=== PATIENT | female | born 1995 | race Two or more races ===

== ENCOUNTER 2025-06-19 08:30 | Outpatient (AMB) | payer MEDICAID, SELFPAY ==
[2025-06-19 09:07] VITALS: BP 118/79; PULSE 71; RESP 16; TEMP 36.3; O2SAT 96; BMI 35.8
--- NOTE | 2025-06-19 09:07 | AMB.OBINITIA ---
Vital Signs 06/19/25 09:07 Height 1.52 m Height Method Stated Weight 83.121 kg Weight Measurement Method Standing Scale BMI 35.8 BP 118/79 Blood Pressure Source Automatic Cuff Blood Pressure Location Left Upper Arm Position Sitting Respiration 16 Pulse 71 Pulse Source Monitor Temp 97.3 F Temp Source Oral Pulse Oximetry (%) 96 Oxygen Delivery Method Room Air Allergies/Home Meds Allergies & Medications Allergies No Known Allergies Allergy (Verified 06/19/25 09:08) Intake Visit Data Collection New Patient or Established: New Patient not seen in past 3 years at [facility] (considered New) Reason for Visit:: INITIAL CARE Seen by Clinical Staff ONLY (RN/MA): No Fur Mixer Required: No Do You Feel Safe at Home: Yes Authorities Contacted: N/A PCP or OBGYN visit in last 3 months: Yes Hx Now: Yes Are you currently on any form of Control: No Last menstrual period: 03/28/25 Pain Present Currently: No Pain Scale Used: Roland-Rosen/Numerical Pain scale:: 0 Smoking Status Smoking Status: Never smoker Questionnaires Covid-19 Vaccine Questionnaire Has patient been vacinated for Covid-19 Have you been vacinated for Covid-19: Yes PHQ-9 PHQ-2 Over the last 2 weeks, how often have you been bothered by any of the following problems? 1. Little interest or pleasure in doing things: not at all 2. Feeling down, depressed, or hopeless: not at all Total score: 0 PHQ-9 3. Trouble falling or staying asleep, or sleeping too much: Not at all 4. Feeling tired or having little energy: Not at all 5. Poor appetite or overeating: Not at all 6. Feeling bad about yourself - or that you are a failure or have let yourself or your family down: Not at all 7. Trouble concentrating on things, such as reading the newspaper or watching television: Not at all 8. Moving or speaking so slowly that other people could have noticed? - Or the opposite - being so fidgety or restless that you have been moving around a lot more than usual: not at all 9. Thoughts that you would be better off or of hurting yourself in some way: Not at all Total score: 0 Source: Developed by Drs. Oracio Nails, Latha Tarun Evans and colleagues, with an educational zaki from [employer]. Depression screen completed yes Social History Living Situation History Marital Status: Lives With: Family Housing: House Tobacco History Smoking Status: Never smoker Second Hand Smoke Exposure: No Alcohol History Alcohol Intake: Never Domestic Abuse History Do You Feel Safe at Home: Yes History of Present Illness HPI Narrative Kera Jimenez presents for care with a confirmed . Her last menstrual period was on March 28, and she had a positive home test on May 31. She reports experiencing spotting, which prompted an ER visit last Thursday. During the ER visit, she was diagnosed with a subchorionic hematoma and a urinary tract infection (UTI), for which she was prescribed cephalexin for 10 days. The patient is currently taking vitamins as recommended. She denies experiencing nausea or vomiting. She has a history of a previous and pre-eclampsia in her last . The patient is compliant with her antibiotic treatment for the UTI. She is a patient with an obstetric history of G2 T1 L1. Her last menstrual period was on March 28 and she is currently 7 weeks and 6 days with an estimated due date of February 07, 2026. The patient has a history of previous delivery and pre-eclampsia in her previous . ROS: Positive for nausea, vomiting, and spotting. Negative for fever, chills, fatigue, muscle aches, appetite or weight change, and cramping. OPEN CLAIMS REPRESENTATIVE: Past Medical History Past Medical History: No Hx Neurological Disorders, Yes Hx Hypothyroidism, No Hx Hyperthyroidism, No Hx Cardiac Disorders, No Hx Cancer, No Hx Blood Disorders, No Hx Gastrointestinal Disorders, No Hx Renal Disease, No Hx Diabetes Mellitus Type 1 and No Hx Diabetes Mellitus Type 2 OB Initial Visit OB Flowsheet OB Flowsheet Initial Weight: Not Recorded Date <del>?</del> EGA Weight BP Alb Glu CTX Pres Fundal ht FHR Mov Dilation Station Effacement Hx Notes Visit Note 06/19/25 <del>?</del> 7w 6d 83.121 kg 118/79 - Reports recent spotting - Evaluated at ER last Thursday - Diagnosed with subchorionic hematoma - Denies nausea, vomiting, or cramping - Recent medical history: - Diagnosed with UTI at recent ER visit - Currently taking cephalexin (antibiotic) for 10 days - Obstetric history: - Previous - History of pre-eclampsia in previous - Complete routine labs today - Perform genetic testing (NIPT) on or after June 27 when patient is 9 weeks gestation - Discontinue cephalexin if more than 5 days completed; send new urine culture - Start aspirin at 15 weeks gestation for pre-eclampsia prevention - Follow up in 4 weeks - Schedule nuchal translucency ultrasound at 12 weeks - Schedule anatomy ultrasound at 20 weeks - Patient to have repeat if delivering in [place]; option to transfer to [facility] if desiring trial of labor Menstrual History Menstrual reliability: definite Flow: normal Menstrual regularity: irregular Monthly: Yes Age at menarche: 9 On control pills at conception: No Associated symptoms (LMP): Reports nausea, fatigue, breast tenderness and bloating OB History : 3 Para: 1 Hx Total # of Abortions (Spontaneous & Elective): 1 # of Living Children: 1 Delivery History 1st : Child's name: LAYLA date: 07/08/22 sex: male Gestational age at delivery (weeks): 40 Delivery type: Delivery complications: PRE CLAMPSIA History of depression before or after : No Infection History & Risk Evaluation History of STDs: none Genetic Screening & History Genetic Screening/Teratology Counseling - Includes patient, baby's father, or anyone in either family with: 1. Patient's age 35 years or older as of estimated date of delivery: No 2. Thalassemia (Kuwaiti, Chinese, Mediterranean, or Background); MCV less than 80: No 3. Neural Tube Defect (Meningomyelocele, Spina Bifida, or Anencephaly): No 4. Congenital Heart Defect: No 5. Down Syndrome: No 6. Jackson-Sachs (Ashkenazi Sabianist, Cajun, Frisian [place]): No 7. Toni Disease (Ashkenazi Sabianist): No 8. Familial Dysautonomia (Ashkenazi Sabianist): No 9. Sickle Cell Disease or Trait (): No 10. Hemophilia or other blood disorders: No 11. Muscular Dystrophy: No 12. Cystic Fibrosis: No 13. Hamlin's Chorea: No 14. Mental Retardation/Autism: No 15. Other inherited genetic or chromosomal disorder: No 16. Maternal Metabolic Disorder (EG,TYPE 1 Diabetes, PKU): No 17. Patient or baby's father had a child with defects not listed above: No 18. Recurrent loss or a stillbirth: No 19. Medications (including supplements, vitamins, herbs or otc drugs)/illicit/recreational drugs/alcohol since last menstrual period: No 20. Any other: No Infection History 1. Live with someone with TB or exposed to TB: No 2. Rash or viral illness since last menstrual period: No 3. Hepatitis B,C: No Other (see comments) Source: [employer] Review of Systems Constitutional Constitutional: Reports fatigue Gastrointestinal Gastrointestinal: Reports bloating and Reports nausea Endocrine Endocrine: Reports fatigue Office Procedures OB Clinic LOC & Office Proc's Nursing/Assessment Patient Status: Initial/New Patient OB Clinic Nursing Assessment: Medication Reconciliation, Update PMH in EMR and Vital Signs OB Clinic Coordination of Care: Complex Care and Chronic Disease 1-5, Consent,records obtained, informed consent, Education Simp Pt/Fam, Lab and Imaging orders, Results/Orders obtained and Staff clarify orders Special Needs: Heart tones New Patient Charge New Patient Point Assignment: [id number] New Patient Point Charge: IMMIGRATION SERVICES OFFICER Level 4 ([id number]) Assessment & Plan Diagnosis / Problem List (1) Maternal care for low transverse scar from previous delivery: Status: Acute (2) Supervision of high risk , unspecified, first trimester: Status: Acute Plan Intrauterine : - 7 weeks 6 days gestation with viable heart rate of 167 bpm. - Resolving subchorionic hemorrhage with recent spotting. - Last menstrual period March 28, positive home test May 31. Plan: - Routine labs to be drawn today. - Genetic testing (NIPT) to be performed after 9 weeks gestation (on or after June 27). - Continue vitamins. - Follow-up appointment in 4 weeks. - Nuchal translucency ultrasound at 12 weeks (patient to receive call from [facility]). - Anatomy ultrasound scheduled for 20 weeks gestation. History of : - Previous delivery with local hospital capabilities requiring repeat if delivering in [place]. Plan: - Planned repeat if delivering in [place]. - Offered option of trial of labor after (TOLAC) with transfer to [place] or [place] if patient desires. History of pre-eclampsia: - Previous complicated by pre-eclampsia, placing patient at increased risk for recurrence. Plan: - Initiate aspirin at 15 weeks gestation for pre-eclampsia prevention. - Monitor kidney function and other relevant parameters throughout . Urinary tract infection: - Recent UTI diagnosis in ER, currently on day 5 of 10-day course of cephalexin. Plan: - Discontinue cephalexin if more than 5 days completed. - Obtain new urine culture to ensure infection clearance.
== END 2025-06-19 09:38 | disposition home or self-care (01) ==
LOC: HODSOBC 08:30
PROVIDERS: Supervising Provider Obstetrics & Gynecology; Visit Provider Obstetrics & Gynecology
DX: O09.291 Supervision of pregnancy with other poor reproductive or obstetric history, first trimester (principal); O34.211 Maternal care for low transverse scar from previous cesarean delivery; O23.41 Unspecified infection of urinary tract in pregnancy, first trimester; Z3A.01 Less than 8 weeks gestation of pregnancy; Z87.59 Personal history of other complications of pregnancy, childbirth and the puerperium
CPT/HCPCS: 99204; G0463

== ENCOUNTER 2025-07-24 08:33 | Outpatient (AMB) | payer MEDICAID, SELFPAY ==
[2025-07-24 08:46] VITALS: BP 118/76; PULSE 79; RESP 16; TEMP 36.3; O2SAT 96; BMI 35.2
--- NOTE | 2025-07-24 08:46 | OBCLNT_ITS ---
Vital Signs 07/24/25 08:46 Height 1.52 m Height Method Stated Weight 81.363 kg Weight Measurement Method Standing Scale BMI 35.2 BP 118/76 Blood Pressure Source Automatic Cuff Blood Pressure Location Left Upper Arm Position Sitting Respiration 16 Pulse 79 Pulse Source Monitor Temp 97.4 F Temp Source Oral Pulse Oximetry (%) 96 Oxygen Delivery Method Room Air Allergies/Home Meds Allergies & Medications Allergies No Known Allergies Allergy (Verified 07/24/25 08:47) Medication Reconciliation No Known Home Medications 07/24/25 [History Confirmed 07/24/25] Intake Visit Data Collection New Patient or Established: Established Patient (seen at [facility] within 3 years) Reason for Visit:: CARE Seen by Clinical Staff ONLY (RN/MA): No Branch Office Administrator Required: No Do You Feel Safe at Home: Yes Authorities Contacted: N/A PCP or OBGYN visit in last 3 months: Yes Hx Now: Yes Are you currently on any form of Control: No Pain Present Currently: No Pain Scale Used: Roland-Rosen/Numerical Pain scale:: 0 Smoking Status Smoking Status: Never smoker Questionnaires Covid-19 Vaccine Questionnaire Has patient been vacinated for Covid-19 Have you been vacinated for Covid-19: Yes PHQ-9 PHQ-2 Over the last 2 weeks, how often have you been bothered by any of the following problems? 1. Little interest or pleasure in doing things: not at all 2. Feeling down, depressed, or hopeless: not at all Total score: 0 PHQ-9 3. Trouble falling or staying asleep, or sleeping too much: Not at all 4. Feeling tired or having little energy: Not at all 5. Poor appetite or overeating: Not at all 6. Feeling bad about yourself - or that you are a failure or have let yourself or your family down: Not at all 7. Trouble concentrating on things, such as reading the newspaper or watching television: Not at all 8. Moving or speaking so slowly that other people could have noticed? - Or the opposite - being so fidgety or restless that you have been moving around a lot more than usual: not at all 9. Thoughts that you would be better off or of hurting yourself in some way: Not at all Total score: 0 Source: Developed by Latha PiañW. Raffy, Tarun Bailey and colleagues, with an educational zaki from [employer] Depression screen completed yes Social History Living Situation History Lives With: Family Housing: House Tobacco History Smoking Status: Never smoker Second Hand Smoke Exposure: No Alcohol History Alcohol Intake: Never Domestic Abuse History Do You Feel Safe at Home: Yes BUSINESS APPLICATIONS ANALYST: Past Medical History Past Medical History: No Hx Neurological Disorders, Yes Hx Hypothyroidism, No Hx Hyperthyroidism, No Hx Cardiac Disorders, No Hx Cancer, No Hx Blood Disorders, No Hx Gastrointestinal Disorders, No Hx Renal Disease, No Hx Diabetes Mellitus Type 1 and No Hx Diabetes Mellitus Type 2 Care OB Visit Log OB Flowsheet Initial Weight: Not Recorded Date -?-?-?-?-?-?-?-?-?-?-?-?- EGA Weight BP Alb Glu CTX Pres Fundal ht FHR Mov Dilation Station Effacement Hx Notes Visit Note 06/19/25 -?-?-?-?-?-?-?-?-?-?-?-?- 7w 6d 83.121 kg 118/79 - Reports recent spotting - Evaluated at ER last Thursday - Diagnosed with subchorionic hemato ma - Denies nausea, vomiting, or cramping - Recent medical history: - Diagnosed with UTI at recent ER visi t - Currently taking cephalexin (antib iotic) for 10 days - Obstetric history: - Previous - History of pre-eclampsia in previous - Complete routine labs today - Perform genetic testing (NIPT) on or a fter June 27 when patient is 9 weeks gestation - Discontinue cephalexin if more than 5 days completed; send new urine culture - Start aspirin at 15 weeks gestation fo r pre-eclampsia prevention - Follow up in 4 weeks - Schedule nuchal translucency ultrasoun d at 12 weeks - Schedule anatomy ultrasound at 20 week s - Patient to have repeat if de livering in [place]; option to queen sfer to [place] or [place] if desiring trial of labor 07/24/25 -?-?-?-?-?-?-?-?-?-?-?-?- 12w 6d 81.363 kg 118/76 Denies MARSHALL, VC, and epigastric pain. - Patient reports no specific complaints or concerns at this visit. - She inquires about resuming acne medic ation she was taking prior to . - Medication name not specified in tra nscript. - Patient mentions low vitamin D levels. - Currently taking 5000 units of vitamin D daily. Plan - Follow up in 2 weeks to review ultraso und results - Discontinue minocycline for acne treat ment - Prescribe topical clindamycin (face wa sh and cream) for acne management - Continue vitamin D supplementation (50 00 units daily, taken in the morning) - Attend scheduled ultrasound appointmen t this afternoon CICI Calculator Estimated Delivery Date Method Current WG Current Estimate 01/30/26 Ultrasound #1 12w 6d Other Estimates 01/02/26 LMP (Certain) 16w 6d Office Procedures OBC Clinic LOC & Office Proc's Nursing/Assessment Patient Status: Established Patient OB Clinic Nursing Assessment: Medication Reconciliation, Update PMH in EMR and Vital Signs OB Clinic Coordination of Care: Complex Care and Chronic Disease 1-5, Consent,records obtained, informed consent, Education Simp Pt/Fam, Lab and Imaging orders, Results/Orders obtained and Staff clarify orders Special Needs: Heart tones Established Patient Charge Established Patient Point Assignment: 135 Established Patient Point Charge: EP Level 4 (120-155) Assessment & Plan Diagnosis / Problem List (1) Supervision of high risk , unspecified, first trimester: Status: Acute (2) Maternal care for low transverse scar from previous delivery: Status: Acute Plan Problem List - , first trimester - Vitamin D deficiency - Acne Assessment 3 para 0 at 12 weeks and 6 days gestation presenting for routine visit. panel, including hepatitis testing and antibodies, all within normal limits. Urine culture negative. Genetic testing completed, revealing sex as female. Patient reports history of acne treated with minocycline prior to , which is now contraindicated. Low vitamin D levels noted. Patient scheduled for ultrasound on the same day as this visit. Plan - Follow up in 2 weeks to review ultrasound results - Discontinue minocycline for acne treatment - Prescribe topical clindamycin (face wash and cream) for acne management - Continue vitamin D supplementation (5000 units daily, taken in the morning) - Attend scheduled ultrasound appointment this afternoon
== END 2025-07-24 09:14 | disposition home or self-care (01) ==
LOC: HODSOBC 08:33
PROVIDERS: Supervising Provider Obstetrics & Gynecology; Visit Provider Obstetrics & Gynecology
DX: O09.291 Supervision of pregnancy with other poor reproductive or obstetric history, first trimester (principal); O34.211 Maternal care for low transverse scar from previous cesarean delivery; O99.281 Endocrine, nutritional and metabolic diseases complicating pregnancy, first trimester; E55.9 Vitamin D deficiency, unspecified; L70.9 Acne, unspecified; O99.711 Diseases of the skin and subcutaneous tissue complicating pregnancy, first trimester; Z3A.12 12 weeks gestation of pregnancy; Z87.59 Personal history of other complications of pregnancy, childbirth and the puerperium
CPT/HCPCS: 99214; G0463

== ENCOUNTER 2025-08-07 08:35 | Outpatient (AMB) | payer MEDICAID, SELFPAY ==
[2025-08-07 08:46] VITALS: BP 117/74; PULSE 82; RESP 16; TEMP 36.2; O2SAT 99; BMI 35.3
--- NOTE | 2025-08-07 08:46 | OBCLNT_ITS ---
Vital Signs 08/07/25 08:46 Height 1.52 m Height Method Stated Weight 81.647 kg Weight Measurement Method Standing Scale BMI 35.3 BP 117/74 Blood Pressure Source Automatic Cuff Blood Pressure Location Left Upper Arm Position Sitting Respiration 16 Pulse 82 Pulse Source Monitor Temp 97.2 F Temp Source Oral Pulse Oximetry (%) 99 Oxygen Delivery Method Room Air Allergies/Home Meds Allergies & Medications Allergies No Known Allergies Allergy (Verified 08/07/25 08:48) Medication Reconciliation aspirin 81 mg tablet 81 mg PO QDAY 90 days #90 tabs 08/31/25 [Rx] Intake Visit Data Collection New Patient or Established: Established Patient (seen at [facility] within 3 years) Reason for Visit:: OBC Seen by Clinical Staff ONLY (RN/MA): No Director Enterprise Systems Required: No Do You Feel Safe at Home: Yes Authorities Contacted: N/A PCP or OBGYN visit in last 3 months: Yes Date of Last PCP or OBGYN visit: 07/24/25 Hx Now: Yes Are you currently on any form of Control: No Pain Present Currently: No Pain Scale Used: Roland-Rosen/Numerical Pain scale:: 0 Smoking Status Smoking Status: Never smoker Questionnaires Covid-19 Vaccine Questionnaire Has patient been vacinated for Covid-19 Have you been vacinated for Covid-19: Yes PHQ-9 PHQ-2 Over the last 2 weeks, how often have you been bothered by any of the following problems? 1. Little interest or pleasure in doing things: not at all 2. Feeling down, depressed, or hopeless: not at all Total score: 0 PHQ-9 3. Trouble falling or staying asleep, or sleeping too much: Not at all 4. Feeling tired or having little energy: Not at all 5. Poor appetite or overeating: Not at all 6. Feeling bad about yourself - or that you are a failure or have let yourself or your family down: Not at all 7. Trouble concentrating on things, such as reading the newspaper or watching television: Not at all 8. Moving or speaking so slowly that other people could have noticed? - Or the opposite - being so fidgety or restless that you have been moving around a lot more than usual: not at all 9. Thoughts that you would be better off or of hurting yourself in some way: Not at all Total score: 0 If you checked off any problems, how difficult have these problems made it for you to do your work, take care of things at home, or get along with other people?: not difficult at all Source: Developed by Drs. Oracio Nails, Latha Akbar, Tarun Bailey and colleagues, with an educational zaki from [employer]. Depression screen completed yes Social History Living Situation History Marital Status: Single Lives With: Family Housing: House Tobacco History Smoking Status: Never smoker Second Hand Smoke Exposure: No Alcohol History Alcohol Intake: Never Domestic Abuse History Do You Feel Safe at Home: Yes SENIOR MECHANICAL PROJECT ENGINEER: Past Medical History Past Medical History: No Hx Neurological Disorders, Yes Hx Hypothyroidism, No Hx Hyperthyroidism, No Hx Cardiac Disorders, No Hx Cancer, No Hx Blood Disorders, No Hx Gastrointestinal Disorders, No Hx Renal Disease, No Hx Diabetes Mellitus Type 1 and No Hx Diabetes Mellitus Type 2 Care OB Visit Log OB Flowsheet Initial Weight: Not Recorded Date -?-?-?-?-?-?-?-?-?-?-?-?- EGA Weight BP Alb Glu CTX Pres Fundal ht FHR Mov Dilation Station Effacement Hx Notes Visit Note 06/19/25 -?-?-?-?-?-?-?-?-?-?-?-?- 7w 6d 83.121 kg 118/79 - Reports recent spotting - Evaluated at ER last Thursday - Diagnosed with subchorionic hemato ma - Denies nausea, vomiting, or cramping - Recent medical history: - Diagnosed with UTI at recent ER visi t - Currently taking cephalexin (antib iotic) for 10 days - Obstetric history: - Previous - History of pre-eclampsia in previous - Complete routine labs today - Perform genetic testing (NIPT) on or a fter June 27 when patient is 9 weeks gestation - Discontinue cephalexin if more than 5 days completed; send new urine culture - Start aspirin at 15 weeks gestation fo r pre-eclampsia prevention - Follow up in 4 weeks - Schedule nuchal translucency ultrasoun d at 12 weeks - Schedule anatomy ultrasound at 20 week s - Patient to have repeat if de livering in [place]; option to transfer to [place] or [place] if desiring trial of labor 07/24/25 -?-?-?-?-?-?-?-?-?--?-?-?- 12w 6d 81.363 kg 118/76 Denies MARSHALL, VC, and epigastric pain. - Patient reports no specific complaints or concerns at this visit. - She inquires about resuming acne medic ation she was taking prior to . - Medication name not specified in tra nscript. - Patient mentions low vitamin D levels. - Currently taking 5000 units of vitamin D daily. Plan - Follow up in 2 weeks to review ultraso und results - Discontinue minocycline for acne treat ment - Prescribe topical clindamycin (face wa sh and cream) for acne management - Continue vitamin D supplementation (50 00 units daily, taken in the morning) - Attend scheduled ultrasound appointmen t this afternoon 08/07/25 -?-?-?-?-?-?-?-?-?-?-?-?- 14w 6d 81.647 kg 117/74 - Patient had nuchal translucency screening with [facility]- [facility]. - She has a history of preeclampsia and has been initiated on aspirin therapy. - Patient has a BMI of 35. - She has a scheduled appointment for anatomy ultrasound. - Initiate aspirin therapy - Schedule anatomy ultrasound - Obtain insurance authorization for ref erral CICI Calculator Estimated Delivery Date Method Current WG Current Estimate 01/30/26 Ultrasound #1 19w 4d Other Estimates 01/02/26 LMP (Certain) 23w 4d Office Procedures OBC Clinic LOC & Office Proc's Nursing/Assessment Patient Status: Established Patient OB Clinic Nursing Assessment: Medication Reconciliation, Update PMH in EMR and Vital Signs OB Clinic Coordination of Care: Consent,records obtained, informed consent, Education Simp Pt/Fam, Lab and Imaging orders, Results/Orders obtained and Staff clarify orders Special Needs: Heart tones Established Patient Charge Established Patient Point Assignment: 110 Established Patient Point Charge: EP Level 3 (80-115) Assessment & Plan Diagnosis / Problem List (1) Maternal care for low transverse scar from previous delivery: Status: Acute (2) Supervision of high risk , unspecified, first trimester: Status: Acute Plan Problem List - , 14 weeks 6 days gestation - Obesity (BMI 35) - History of preeclampsia Plan - Initiate aspirin therapy - Schedule anatomy ultrasound - Obtain insurance authorization for referral 1. Progress Reviewed gestational age, growth, and heart rate. Planned frequent visits (every 2 weeks until 36 weeks, then weekly). 2. Instructed patient to monitor movements and report decreases immediately. 3. Testing Counseled on routine third-trimester labs per guidelines. Discussed potential need for ultrasound or monitoring based on risk factors. 4. Preeclampsia Precaution Educated on preeclampsia signs: severe headache, vision changes, right upper quadrant pain, sudden swelling. Advised urgent reporting of symptoms and discussed blood pressure monitoring if high risk. 5. Labor Precautions Reviewed labor signs: regular contractions, pelvic pressure, back pain, bleeding, or fluid leakage. Instructed to seek immediate care for these symptoms. 6. Lifestyle and Delivery Preparation Reinforced vitamins, nutrition, and safe activity. Discussed plan, pain management, and . Advised on labor preparation (e.g., hospital bag) and expectations. 7. Psychosocial Support Assessed emotional well-being and offered resources for mental health or parenting support.
== END 2025-08-07 09:20 | disposition home or self-care (01) ==
LOC: HODSOBC 08:35
PROVIDERS: Supervising Provider Obstetrics & Gynecology; Visit Provider Obstetrics & Gynecology
DX: O09.292 Supervision of pregnancy with other poor reproductive or obstetric history, second trimester (principal); O34.211 Maternal care for low transverse scar from previous cesarean delivery; O09.892 Supervision of other high risk pregnancies, second trimester; O99.212 Obesity complicating pregnancy, second trimester; Z3A.14 14 weeks gestation of pregnancy; Z87.59 Personal history of other complications of pregnancy, childbirth and the puerperium
CPT/HCPCS: 99213; G0463

== ENCOUNTER 2025-09-19 10:29 | Outpatient (AMB) | payer MEDICAID, SELFPAY ==
--- NOTE | 2025-09-19 10:33 | AMB.OBPNC ---
Vital Signs 09/19/25 10:48 Height 1.52 m Height Method Stated Weight 83.461 kg Weight Measurement Method Standing Scale BMI 36.1 BP 116/78 Blood Pressure Source Automatic Cuff Blood Pressure Location Left Upper Arm Position Sitting Respiration 16 Pulse 82 Pulse Source Monitor Temp 97.4 F Temp Source Oral Pulse Oximetry (%) 96 Oxygen Delivery Method Room Air Allergies/Home Meds Allergies & Medications Allergies No Known Allergies Allergy (Verified 09/19/25 10:49) Medication Reconciliation aspirin 81 mg tablet 81 mg PO QDAY 90 days #90 tabs 09/19/25 [Rx] vits no.126-ferrous fum 28 mg iron-folic acid 800 mcg tablet (Classic ) 1 tab PO QDAY 90 days #90 tabs 09/19/25 [Rx] Immunizations Immunizations Flu Vaccine in the Last 12 Months: No Flu Vaccine Exclusion Criteria: Refused by Patient Care OB Visit Log OB Flowsheet Initial Weight: Not Recorded Date <del>?</del> EGA Weight BP Alb Glu CTX Pres Fundal ht FHR Mov Dilation Station Effacement Hx Notes Visit Note 06/19/25 <del>?</del> 7w 6d 83.121 kg 118/79 - Reports recent spotting - Evaluated at ER last Thursday - Diagnosed with subchorionic hematoma - Denies nausea, vomiting, or cramping - Recent medical history: - Diagnosed with UTI at recent ER visit - Currently taking cephalexin (antibiotic) for 10 days - Obstetric history: - Previous - History of pre-eclampsia in previous - Complete routine labs today - Perform genetic testing (NIPT) on or after June 27 when patient is 9 weeks gestation - Discontinue cephalexin if more than 5 days completed; send new urine culture - Start aspirin at 15 weeks gestation for pre-eclampsia prevention - Follow up in 4 weeks - Schedule nuchal translucency ultrasound at 12 weeks - Schedule anatomy ultrasound at 20 weeks - Patient to have repeat if delivering in [place]; option to transfer to [place] or [place] if desiring trial of labor 07/24/25 <del>?</del> 12w 6d 81.363 kg 118/76 Denies MARSHALL, VC, and epigastric pain. - Patient reports no specific complaints or concerns at this visit. - She inquires about resuming acne medication she was taking prior to . - Medication name not specified in transcript. - Patient mentions low vitamin D levels. - Currently taking 5000 units of vitamin D daily. Plan - Follow up in 2 weeks to review ultrasound results - Discontinue minocycline for acne treatment - Prescribe topical clindamycin (face wash and cream) for acne management - Continue vitamin D supplementation (5000 units daily, taken in the morning) - Attend scheduled ultrasound appointment this afternoon 08/07/25 <del>?</del> 14w 6d 81.647 kg 117/74 - Patient had nuchal translucency screening with [facility]. - She has a history of preeclampsia and has been initiated on aspirin therapy. - Patient has a BMI of 35. - She has a scheduled appointment for anatomy ultrasound. - Initiate aspirin therapy - Schedule anatomy ultrasound - Obtain insurance authorization for referral 09/19/25 <del>?</del> 21w 0d 83.461 kg 116/78 unstable 21 145 active - Patient reports the baby is active. - She has not yet obtained the prescribed aspirin medication despite the prescription being sent. - Patient inquires about receiving the flu shot during . - Continue aspirin prescription (patient to steel pickler from pharmacy with printout provided) - Administer influenza vaccination today - Order 1-hour glucose tolerance test to be completed within next 4 weeks (recommend fasting) - Continue vitamins - Follow-up with [facility] (Dr. Lange) on October 06 - Return visit in 4 weeks after [facility] appointment CICI Calculator Estimated Delivery Date Method Current WG Current Estimate 01/30/26 Ultrasound #1 25w 2d Other Estimates 01/02/26 LMP (Certain) 29w 2d Notes Visit Date: 09/19/25 Last Updated by: Samir Frausto MD Laboratory, Imaging, and Diagnostic Test Results - AFP result: Negative - [facility] ultrasound (09/04/2025): - Single living fetus - Gestational age: 20 weeks 3 days (composite age) - Estimated weight: 9th percentile - ANDREEA: Within normal limits - Detailed evaluation: Limited due to position, evaluated structures normal - Placenta: Posterior right lateral, no previa - Cervix: 4.5 cm - heart rate: 163 bpm (normal) - Umbilical artery Dopplers: Within normal limits Office Procedures OBC Clinic LOC & Office Proc's Nursing/Assessment Patient Status: Established Patient OB Clinic Nursing Assessment: Medication Reconciliation, Update PMH in EMR and Vital Signs OB Clinic Coordination of Care: Complex Care and Chronic Disease 1-5, Consent,records obtained, informed consent, Education Simp Pt/Fam, 1 Ins Authorization, Lab and Imaging orders, Results/Orders obtained and Staff clarify orders Special Needs: Heart tones Established Patient Charge Established Patient Point Assignment: 150 Injection/Vaccine Admin SQ Im Injection: Yes Immunizations flu vac ts (6mos up)-PF 45 mcg(15mcg x3)/0.5 mL IM syringe Performing Provider: Samir Frausto MD Performing Location: [facility] Administered by: Rebeca Clement MA on 09/19/25 11:59 Dose Route Admin Location Dispensed Lot Number Expiration Date Package NDC NDC Manager Port 0.5 mL IM Left Deltoid 0.5 mL [id number] 04/24/26 [id number] Tymphany VIS Given Date VIS Provided VIS Publication Date 09/19/25 Single Vaccine 24 Eligibility Eligibility Date Funding Source Public [facility] [place] Assessment & Plan Diagnosis / Problem List (1) Maternal care for low transverse scar from previous delivery: Status: Acute (2) Maternal care for other known or suspected poor growth, third trimester, not applicable or unspecified: Status: Acute Plan Problem List - growth restriction - at 21 weeks gestation Assessment 21-week patient with growth restriction identified on MFM ultrasound showing estimated weight at 9th percentile and growth parameters not consistent with gestational age, though detailed evaluation was limited due to position and evaluated structures appeared normal. Patient has negative AFP result and normal heart rate of 163 bpm with active movement reported. Plan - Continue aspirin prescription (patient to steel pickler from pharmacy with printout provided) - Administer influenza vaccination today - Order 1-hour glucose tolerance test to be completed within next 4 weeks (recommend fasting) - Continue vitamins - Follow-up with [facility] (Dr. Lange) on October 06 - Return visit in 4 weeks after MFM appointment 1. Progress Reviewed gestational age at 21 weeks 0 days, growth restriction noted on MFM ultrasound with estimated weight at 9th percentile, and heart rate of 163 bpm which is normal. Planned follow-up visit in 4 weeks and continued MFM monitoring. 2. Instructed patient to monitor movements and report decreases immediately. 3. Testing Counseled on routine third-trimester labs per guidelines including one-hour glucose test to be completed within next 4 weeks. Discussed potential need for ultrasound or monitoring based on risk factors including growth restriction. 4. Preeclampsia Precaution Educated on preeclampsia signs: severe headache, vision changes, right upper quadrant pain, sudden swelling. Advised urgent reporting of symptoms and discussed blood pressure monitoring if high risk with aspirin prescription provided. 5. Labor Precautions Reviewed labor signs: regular contractions, pelvic pressure, back pain, bleeding, or fluid leakage. Instructed to seek immediate care for these symptoms. 6. Lifestyle and Delivery Preparation Reinforced vitamins, nutrition, and safe activity. Discussed plan, pain management, and . Advised on labor preparation (e.g., hospital bag) and expectations. 7. Psychosocial Support Assessed emotional well-being and offered resources for mental health or parenting support.
[2025-09-19 10:48] VITALS: BP 116/78; PULSE 82; RESP 16; TEMP 36.3; O2SAT 96; BMI 36.1
== END 2025-09-19 11:04 | disposition home or self-care (01) ==
LOC: HODSOBC 10:29
PROVIDERS: Supervising Provider Obstetrics & Gynecology; Visit Provider Obstetrics & Gynecology
DX: O09.292 Supervision of pregnancy with other poor reproductive or obstetric history, second trimester (principal); O34.211 Maternal care for low transverse scar from previous cesarean delivery; O09.892 Supervision of other high risk pregnancies, second trimester; O36.5920 Maternal care for other known or suspected poor fetal growth, second trimester, not applicable or unspecified; Z3A.21 21 weeks gestation of pregnancy; Z23 Encounter for immunization
CPT/HCPCS: 90471; 90686; 96372; 99213; G0463; J9060

== ENCOUNTER 2025-10-23 08:39 | Outpatient (AMB) | payer MEDICAID, SELFPAY ==
[2025-10-23 08:48] VITALS: BP 114/78; PULSE 77; RESP 18; TEMP 36.2; O2SAT 96; BMI 36.0
--- NOTE | 2025-10-23 08:48 | AMB.OBPNC ---
Vital Signs 10/23/25 08:48 Height 1.52 m Height Method Stated Weight 83.178 kg Weight Measurement Method Standing Scale BMI 36.0 BP 114/78 Blood Pressure Source Automatic Cuff Blood Pressure Location Right Upper Arm Position Sitting Respiration 18 Pulse 77 Pulse Source Monitor Temp 97.2 F Temp Source Temporal Artery Scan Pulse Oximetry (%) 96 Oxygen Delivery Method Room Air Allergies/Home Meds Allergies & Medications Allergies No Known Allergies Allergy (Verified 10/23/25 08:49) Medication Reconciliation aspirin 81 mg tablet 81 mg PO QDAY 90 days #90 tabs 09/19/25 [Rx Confirmed 10/23/25] vits no.126-ferrous fum 28 mg iron-folic acid 800 mcg tablet (Classic ) 1 tab PO QDAY 90 days #90 tabs 09/19/25 [Rx Confirmed 10/23/25] Immunizations Immunizations Flu Vaccine in the Last 12 Months: No Flu Vaccine Exclusion Criteria: No Exclusion Criteria Care OB Visit Log OB Flowsheet Initial Weight: Not Recorded Date <del>?</del> EGA Weight BP Alb Glu CTX Pres Fundal ht FHR Mov Dilation Station Effacement Hx Notes Visit Note 06/19/25 <del>?</del> 7w 6d 83.121 kg 118/79 - Reports recent spotting - Evaluated at ER last Thursday - Diagnosed with subchorionic hematoma - Denies nausea, vomiting, or cramping - Recent medical history: - Diagnosed with UTI at recent ER visit - Currently taking cephalexin (antibiotic) for 10 days - Obstetric history: - Previous - History of pre-eclampsia in previous - Complete routine labs today - Perform genetic testing (NIPT) on or after June 27 when patient is 9 weeks gestation - Discontinue cephalexin if more than 5 days completed; send new urine culture - Start aspirin at 15 weeks gestation for pre-eclampsia prevention - Follow up in 4 weeks - Schedule nuchal translucency ultrasound at 12 weeks - Schedule anatomy ultrasound at 20 weeks - Patient to have repeat if delivering in [place]; option to transfer to [place] or [place] if desiring trial of labor 07/24/25 <del>?</del> 12w 6d 81.363 kg 118/76 Denies MARSHALL, VC, and epigastric pain. - Patient reports no specific complaints or concerns at this visit. - She inquires about resuming acne medication she was taking prior to . - Medication name not specified in transcript. - Patient mentions low vitamin D levels. - Currently taking 5000 units of vitamin D daily. Plan - Follow up in 2 weeks to review ultrasound results - Discontinue minocycline for acne treatment - Prescribe topical clindamycin (face wash and cream) for acne management - Continue vitamin D supplementation (5000 units daily, taken in the morning) - Attend scheduled ultrasound appointment this afternoon 08/07/25 <del>?</del> 14w 6d 81.647 kg 117/74 - Patient had nuchal translucency screening with [facility]. - She has a history of preeclampsia and has been initiated on aspirin therapy. - Patient has a BMI of 35. - She has a scheduled appointment for anatomy ultrasound. - Initiate aspirin therapy - Schedule anatomy ultrasound - Obtain insurance authorization for referral 09/19/25 <del>?</del> 21w 0d 83.461 kg 116/78 unstable 21 145 active - Patient reports the baby is active. - She has not yet obtained the prescribed aspirin medication despite the prescription being sent. - Patient inquires about receiving the flu shot during . - Continue aspirin prescription (patient to fiber picker from pharmacy with printout provided) - Administer influenza vaccination today - Order 1-hour glucose tolerance test to be completed within next 4 weeks (recommend fasting) - Continue vitamins - Follow-up with [facility] (Dr. Lange) on October 06 - Return visit in 4 weeks after MFM appointment 10/23/25 <del>?</del> 25w 6d 83.178 kg 114/78 unknown 27 155 active - She reports the baby is moving and she is feeling movement. - She denies having diabetes following her glucose tolerance test. - Patient has been following up with a specialist regarding concerns about growth restriction (FGR). - She reports upcoming frequent monitoring appointments with the specialist, including weekly visits for Doppler studies and measurements every 3 weeks. - Her first baby weighed 9 pounds at . - She requests FMLA forms to be completed for time off for medical appointments. - Continue follow-up with M specialist every week for Doppler studies and every 3 weeks for growth measurements - Return to obstetrics clinic in 2 weeks - Complete FMLA forms for time off for appointments CICI Calculator Estimated Delivery Date Method Current WG Current Estimate 01/30/26 Ultrasound #1 25w 6d Other Estimates 01/02/26 LMP (Certain) 29w 6d Notes Visit Date: 10/23/25 Last Updated by: Samir Frausto MD - Ultrasound: - Gestational age: 26 weeks 3 days - Single fetus - presentation: Cephalic - Estimated weight: 7th percentile - Head circumference: Less than 1st percentile - Composite gestational age: 24 weeks 3 days - Abdominal circumference: 22nd percentile - anatomy: Normal - Placenta: Posterior-left lateral - Amniotic fluid: Normal - Doppler studies: Reassuring - Abnormal growth consistent with growth restriction (FGR) Visit Date: 09/19/25 Last Updated by: Samir Frausto MD Laboratory, Imaging, and Diagnostic Test Results - AFP result: Negative - [facility] ultrasound (09/04/2025): - Single living fetus - Gestational age: 20 weeks 3 days (composite age) - Estimated weight: 9th percentile - ANDREEA: Within normal limits - Detailed evaluation: Limited due to position, evaluated structures normal - Placenta: Posterior right lateral, no previa - Cervix: 4.5 cm - heart rate: 163 bpm (normal) - Umbilical artery Dopplers: Within normal limits Office Procedures OBC Clinic LOC & Office Proc's Nursing/Assessment Patient Status: Established Patient OB Clinic Nursing Assessment: Medication Reconciliation, Update PMH in EMR and Vital Signs OB Clinic Coordination of Care: Complex Care and Chronic Disease 1-5, Education Complex Pt/Fam, Consent,records obtained, informed consent, Lab and Imaging orders, Results/Orders obtained and Staff clarify orders Special Needs: Heart tones Established Patient Charge Established Patient Point Assignment: 140 Established Patient Point Charge: EP Level 4 (120-155) Assessment & Plan Diagnosis / Problem List (1) Maternal care for other known or suspected poor growth, third trimester, not applicable or unspecified: Status: Acute (2) Maternal care for low transverse scar from previous delivery: Status: Acute Plan Problem List - growth restriction Assessment 25-week 6-day patient with growth restriction (FGR) showing abnormal growth with head circumference measuring less than first percentile and estimated weight in the 7th percentile, though overall anatomy appears normal with reassuring Doppler studies and adequate amniotic fluid. One-hour glucose tolerance test result of 135 mg/dL is negative, ruling out gestational diabetes. Patient reports normal movement and has a history of previous full-term infant weighing 9 pounds at . Plan - Continue follow-up with MFM specialist every week for Doppler studies and every 3 weeks for growth measurements - Return to obstetrics clinic in 2 weeks - Complete FMLA forms for time off for appointments 1. Progress Reviewed gestational age at 25 weeks 6 days, growth restriction with estimated weight at 7th percentile and small head circumference less than 1st percentile, and heart rate of 139 bpm. Planned frequent visits every 2 weeks with MFM specialist for Doppler studies and growth measurements every 3 weeks. 2. Instructed patient to monitor movements and report decreases immediately. 3. Testing One-hour glucose tolerance test completed with result of 135 mg/dL (negative for gestational diabetes). Recent ultrasound at 26 weeks 3 days showing growth restriction with reassuring Dopplers and normal anatomy. 4. Preeclampsia Precaution Educated on preeclampsia signs: severe headache, vision changes, right upper quadrant pain, sudden swelling. Advised urgent reporting of symptoms and discussed blood pressure monitoring if high risk. 5. Labor Precautions Reviewed labor signs: regular contractions, pelvic pressure, back pain, bleeding, or fluid leakage. Instructed to seek immediate care for these symptoms. 6. Lifestyle and Delivery Preparation Reinforced vitamins, nutrition, and safe activity. Discussed plan, pain management, and . Advised on labor preparation (e.g., hospital bag) and expectations. 7. Psychosocial Support Assessed emotional well-being and offered [place] documentation support for frequent medical appointments.
== END 2025-10-23 09:10 | disposition home or self-care (01) ==
LOC: HODSOBC 08:39
PROVIDERS: Supervising Provider Obstetrics & Gynecology; Visit Provider Obstetrics & Gynecology
DX: O09.292 Supervision of pregnancy with other poor reproductive or obstetric history, second trimester (principal); O34.211 Maternal care for low transverse scar from previous cesarean delivery; O09.892 Supervision of other high risk pregnancies, second trimester; O36.5920 Maternal care for other known or suspected poor fetal growth, second trimester, not applicable or unspecified; Z3A.25 25 weeks gestation of pregnancy
CPT/HCPCS: 99214; G0463